=== PATIENT | female | born 1935 | race Asian ===

== ENCOUNTER 2016-10-01 11:07 | Emergency (ER) | payer OTHER ==
[~2016-10-01] VITALS: Ht 160 cm; Wt 102.5 kg
[2016-10-01 13:43] LABS: PLATELET COUNT 267 K/uL (152-353)
[2016-10-01 13:47] LABS: POTASSIUM 3.6 mmol/L (3.6-5.2)
[2016-10-01 16:21] VITALS: BP 157/63; TEMP 98.6
== END 2016-10-01 16:21 | disposition home or self-care (01) ==
LOC: ED 11:07
PROVIDERS: Specialist
DX: S20.211A Contusion of right front wall of thorax, initial encounter (principal); R00.1 Bradycardia, unspecified; W01.190A Fall on same level from slipping, tripping and stumbling with subsequent striking against furniture, initial encounter; Y92.89 Other specified places as the place of occurrence of the external cause
CPT/HCPCS: 36415; 80053; 81000; 82550; 82553; 85027; 93005; 96372; 99283; J1885

== ENCOUNTER 2016-10-14 13:14 | Outpatient (CLI) | payer OTHER | END 2016-10-14 23:05 | disposition home or self-care (01) | LOC: RAD 13:14 | DX: M25.561 Pain in right knee (principal) ==

== ENCOUNTER 2017-05-15 18:18 | Emergency (ER) | payer OTHER ==
[~2017-05-15] VITALS: Ht 160 cm; Wt 91.2 kg
[2017-05-15 19:20] LABS: PLATELET COUNT 249 K/uL (152-353)
[2017-05-15 19:31] LABS: POTASSIUM 4.2 mmol/L (3.6-5.2)
[2017-05-15 22:12] VITALS: BP 164/61; TEMP 97.9
== END 2017-05-15 22:32 | disposition home or self-care (01) ==
LOC: ED 18:18
DX: E11.22 Type 2 diabetes mellitus with diabetic chronic kidney disease (principal); I12.9 Hypertensive chronic kidney disease with stage 1 through stage 4 chronic kidney disease, or unspecified chronic kidney disease; D64.89 Other specified anemias
CPT/HCPCS: 36415; 80053; 81000; 83036; 83605; 85027; 96360; 96361; 96372; 99284

== ENCOUNTER 2017-06-17 09:24 | Outpatient (CLI) | payer OTHER | END 2017-06-17 19:06 | disposition home or self-care (01) | LOC: RAD 09:24 | DX: R91.1 Solitary pulmonary nodule (principal) ==

== ENCOUNTER 2017-08-27 11:28 | Outpatient (CLI) | payer OTHER | END 2017-08-27 11:30 | disposition short-term general hospital (02) | LOC: AMB 11:28 | DX: M54.2 Cervicalgia (principal); M54.5 Low back pain; V49.88XA Car occupant (driver) (passenger) injured in other specified transport accidents, initial encounter; Y92.488 Other paved roadways as the place of occurrence of the external cause | CPT/HCPCS: A0425; A0429 ==

== ENCOUNTER 2017-08-27 11:30 | Emergency (ER) | payer OTHER ==
[~2017-08-27] VITALS: Ht 160 cm; Wt 90.7 kg
[2017-08-27 15:02] VITALS: BP 140/71; TEMP 97.2
== END 2017-08-27 15:07 | disposition home or self-care (01) ==
LOC: ED 11:30
DX: S39.012A Strain of muscle, fascia and tendon of lower back, initial encounter (principal); S33.5XXA Sprain of ligaments of lumbar spine, initial encounter; M47.896 Other spondylosis, lumbar region; M54.5 Low back pain; V43.52XA Car driver injured in collision with other type car in traffic accident, initial encounter; Y92.89 Other specified places as the place of occurrence of the external cause
CPT/HCPCS: 36415; 96372; 99283; J1885

== ENCOUNTER 2018-01-14 19:21 | Emergency (ER) | payer OTHER ==
[~2018-01-14] VITALS: Ht 160 cm; Wt 88.5 kg
[2018-01-14 21:47] VITALS: BP 130/75; TEMP 98
== END 2018-01-14 21:49 | disposition home or self-care (01) ==
LOC: ED 19:21
PROC: 2W3KX1Z Immobilization of Left Finger using Splint (ICD-10-PCS; principal; 2018-01-14)
DX: S62.617A Displaced fracture of proximal phalanx of left little finger, initial encounter for closed fracture (principal); W18.39XA Other fall on same level, initial encounter; Y92.89 Other specified places as the place of occurrence of the external cause
CPT/HCPCS: 96372; 99283; J1885

== ENCOUNTER 2018-01-24 16:39 | Emergency (ER) | payer OTHER ==
[~2018-01-24] VITALS: Ht 160 cm; Wt 88.5 kg
[2018-01-24 17:47] LABS: PLATELET COUNT 262 K/uL (152-353)
[2018-01-24 17:57] LABS: POTASSIUM 3.4 mmol/L (3.6-5.2)
[2018-01-24 18:38] VITALS: BP 168/72; TEMP 98
== END 2018-01-24 18:44 | disposition home or self-care (01) ==
LOC: ED 16:39
DX: L89.150 Pressure ulcer of sacral region, unstageable (principal); M53.3 Sacrococcygeal disorders, not elsewhere classified; E11.9 Type 2 diabetes mellitus without complications; N18.9 Chronic kidney disease, unspecified
CPT/HCPCS: 36415; 80053; 85027; 99283